=== PATIENT | female | born 1945 | race Caucasian/White ===

== ENCOUNTER → 2023-10-05 14:05 | Outpatient (REF) | payer MEDICARE, SELFPAY ==
[2023-10-05 15:37] LABS: % Eosinophils 0.8 % (0-6); % Immature Granulocytes 0.5 % (0-0.5); % Lymphocytes 27.4 % (20.5-51.1); % Monocytes 8.5 % (1.7-9.3); % Neutrophils 61.8 % (42.2-75.2); Absolute Basophils 0.1 10^3/uL (0-0.2); Absolute Eosinophils 0.1 10^3/uL (0-0.7); Absolute Lymphocytes 1.7 10^3/uL (1.2-3.4); Absolute Monocytes 0.5 10^3/uL (0.1-0.6); Absolute Neutrophils 3.8 10^3/uL (1.4-6.5); Hematocrit 41.5 % (37.0-47.0); Hemoglobin 14.1 g/dL (12.0-16.0); Mean Corpuscular Hgb 30.3 pg (27.0-31.0); Mean Corpuscular Volume 89.1 fL (81.0-99.0); Mean Platelet Volume 9.7 fL (7.4-10.4); Nucleated Red Blood Cells % 0 %; Platelet Count 216 10^3/uL (130-400); Red Blood Cell Count 4.66 10^6/uL (4.20-5.40); White Blood Cell Count 6.1 10^3/uL (4.8-10.8)
[2023-10-05 17:13] LABS: ALT (SGPT) 14 U/L (0-35); AST (SGOT) 24 U/L (14-36); Alkaline Phosphatase 92 U/L (38-126); Blood Urea Nitrogen 18 mg/dl (7-17); Carbon Dioxide 25 mmol/L (22-30); Chloride 100 mmol/L (98-107); Glucose 100 mg/dl (70-99); Potassium 4.3 mmol/L (3.5-5.1); Sodium 135 mmol/L (135-145); Total Bilirubin 1.3 mg/dl (0.2-1.3); Total Cholesterol 302 mg/dl (50-199); Total Protein 7.7 g/dl (6.3-8.2); Triglyceride 84 mg/dl (10-149); Very Low Density Lipoprotein 16 mg/dl (0-30); eGFR > 60.00
[2023-10-05 17:26] LABS: HDL Cholesterol 148 mg/dl; LDL Cholesterol, Calculated 138 mg/dl
[2023-10-05 17:45] LABS: TSH Reflex To Free T4 0.65 uIU/ml (0.47-4.68)
[2023-10-05 18:04] LABS: Vitamin B12 382 pg/ml (239-931)
[2023-10-06 10:58] LABS: Glycohemoglobin (HgbA1c) 5.3 % (4.0-5.6)
== END ==
LOC: REG 14:05
PROVIDERS: ATTENDING PHYSICIAN Nurse Practitioner Family
DX: E78.00 Pure hypercholesterolemia, unspecified (principal); Z13.29 Encounter for screening for other suspected endocrine disorder; Z13.1 Encounter for screening for diabetes mellitus; Z13.0 Encounter for screening for diseases of the blood and blood-forming organs and certain disorders involving the immune mechanism; E55.9 Vitamin D deficiency, unspecified; E53.8 Deficiency of other specified B group vitamins
CPT/HCPCS: 36415; 80053; 80061; 82607; 82652; 83036; 84443; 85025; 86340

== ENCOUNTER → 2023-11-07 14:46 | Outpatient (REF) | payer MEDICARE, SELFPAY | LOC: RCS 14:46 | PROVIDERS: ATTENDING PHYSICIAN Nurse Practitioner Family | DX: R01.1 Cardiac murmur, unspecified (principal) | CPT/HCPCS: 93306 ==

== ENCOUNTER 2024-03-04 15:50 | Emergency (ER) | payer MEDICARE, SELFPAY ==
[2024-03-04] VITALS (7 sets, daily range): BP systolic 100–141; BP diastolic 50–81
[2024-03-04] MEDS: TYLENOL 1000 MG PO (16:01)
[2024-03-04 16:29] LABS: % Basophils 1.2 % (0-2); % Immature Granulocytes 0.3 % (0-0.5); % Lymphocytes 11.6 % (20.5-51.1); % Monocytes 3.7 % (1.7-9.3); % Neutrophils 83.2 % (42.2-75.2); Absolute Basophils 0.1 10^3/uL (0-0.2); Absolute Lymphocytes 0.8 10^3/uL (1.2-3.4); Absolute Monocytes 0.2 10^3/uL (0.1-0.6); Absolute Neutrophils 5.5 10^3/uL (1.4-6.5); Hematocrit 38.6 % (37.0-47.0); Hemoglobin 12.8 g/dL (12.0-16.0); Mean Corp Hgb Conc. 33.2 g/dL (33.0-37.0); Mean Corpuscular Volume 90.4 fL (81.0-99.0); Mean Platelet Volume 9.9 fL (7.4-10.4); Nucleated Red Blood Cells % 0 %; Platelet Count 190 10^3/uL (130-400); Red Blood Cell Count 4.27 10^6/uL (4.20-5.40); Red Cell Dist. Width 11.4 % (11.5-14.5); White Blood Cell Count 6.6 10^3/uL (4.8-10.8)
[2024-03-04 16:44] LABS: Lactic Acid 1.1 mmol/L (0.7-2.0)
[2024-03-04 16:53] LABS: COVID-19 Antigen Negative (Negative)
[2024-03-04 16:55] LABS: Blood Urea Nitrogen 17 mg/dl (7-17); Calcium 9.3 mg/dl (8.4-10.2); Carbon Dioxide 25 mmol/L (22-30); Chloride 100 mmol/L (98-107); Glucose 132 mg/dl (70-99); Lipase 38 U/L (23-300); Sodium 134 mmol/L (135-145); eGFR > 60.00
--- NOTE | 2024-03-04 18:38 | ED.GENMED ---
History of Present Illness
General
Chief Complaint: Abdominal Symptoms
Source: patient
Exam Limitations: none
Time Seen by Provider: 03/04/24 18:22
History of Present Illness
History of Present Illness:
This is a 78 year old female that comes in with multiple complaints. States that she has a UTi for a couple of days. States that she went to yesterday and she was given Bactrim. States that she took one dose last night and vomited. State that she
was so nauseated. States that she has slept most of the day, is very fatigued and felt disoriented. States that she has fever with chills, felt SOB, headache, lightheaded and she feels that her urine output id down. States that she also has right
sided back pain. Denies any chest pain, abd pain, vomiting, or urinary burning.
Past History
Past History
ED Past Medical History: Cancer (Skin and Colon cancer), HTN, Hypercholesterolemia, Psychiatric (Anxiety, ) and Other (cataracts, )
ED Past Surgical History: Bowel resection (with colostomy), Gynecological (Hyesterctomy) and Other ( Joo cataracts, )
Social History
Tobacco: Non-smoker
Alcohol: None
Drug: None
Personal:
Living: alone
Employment: Employed
Family History
Family History: Other (Noncontributory)
Review of Systems
Review of Systems
All Other Systems: ROS reviewed and negative except as documented in HPI and ROS
Constitutional: Reports fever and chills
EENT: Reports no symptoms
Respiratory: Reports trouble breathing; Denies cough
Cardiac: Reports no symptoms; Denies chest pain
ABD/GI: Reports nausea and vomiting; Denies abdominal pain
: Reports other (Decreased output); Denies dysuria, frequency or urgency
Musculoskeletal: Reports no symptoms
Skin: Reports no symptoms
Neurological: Reports headache and other (Lightheaded)
Psychiatric: Reports no symptoms
Phy Exam
General Physical Exam
General Presentation: well appearing
General age: appears stated age
General Skin: warm and dry
General Habitus: elderly
General Mental: alert
General Hydration: appears well hydrated
ENT Exam
ENT Exam: TM's normal, pharynx normal and neck supple
Eye Exam
Eye Exam: EOMI
Cardiovascular Exam
Cardiovascular Exam: regular rate/rhythm, no edema, no murmur and normal peripheral pulses
Pulmonary Exam
Pulmonary Exam: lungs clear, no respiratory distress, no rales, chest non tender, no crackles, no rhonchi, no wheezing and no cough
Gastrointestinal Exam
Gastrointestinal Exam: normal bowel sounds, non tender, soft, no organomegaly, no pulsatile mass and non distended
Musculoskeletal Exam
Musculoskeletal Exam: full ROM and no edema
Skin Exam
Skin Exam: normal color, warm/dry, no rash and no petechia
Psychiatric Exam
Psychiatric Exam: normal mood/affect
Sepsis
Sepsis Screening
Sepsis Assessment: Sepsis Ruled Out
Sepsis Screen
Sepsis Screen: Sepsis Ruled Out
Date: 03/05/24
Time: 04:42
Course
Orders/Labs/Results
Orders:
Orders
03/04/24 15:59
Acetaminophen [Tylenol] 1,000 mg .ROUTE .[facility]-MED ONE
03/04/24 16:00
Acetaminophen [Tylenol] 1,000 mg PO NOW STA
03/04/24 16:10
Basic Metabolic Panel Urgent
COVID-19 Antigen Urgent
Source: Nasal Swab
Complete Blood Count/With Diff Urgent
Lactic Acid Urgent
Lipase Urgent
Influenza A+B Rapid Molecular Urgent
MOJGAN Source: Nasal Swab
Specimen Description:
03/04/24 18:35
0.9% Sodium Chloride 1000 ml [Nss] 1,000 ml IV BOLUS
03/04/24 20:26
Urinalysis Reflex To Culture Urgent
Date Specimen was Collected: 03/04/24
Time Specimen was Collected: 20:08
Urine Microscopic Reflex Cult Urgent
Urine Culture Urgent
MOJGAN Source: U
Specimen Description:
Date Specimen was Collected: 03/04/24
Time Specimen was Collected: 20:08
03/04/24 21:27
CT Abd/pel Without Iv Or Oral Urgent
Comment:
Reason For Exam: right sided pain, Blood in urine
03/04/24 21:58
CefTRIAXone [Rocephin] 1,000 mg IV NOW STA
03/04/24 22:14
Sterile Water [Sterile Water For Injection] 10 ml .ROUTE .[facility]-MED ONE
03/04/24 22:52
Ondansetron Injectable [Zofran] 4 mg IV NOW STA
Abnormal Lab Results
03/04/24 03/04/24
16:10 20:26
RDW 11.4 L %
(11.5-14.5)
Absolute Lymphs (auto) 0.8 L 10^3/uL
(1.2-3.4)
Neutrophils % 83.2 H %
(42.2-75.2)
Lymphocytes % 11.6 L %
(20.5-51.1)
Sodium 134 L mmol/L
(135-145)
Glucose 132 H mg/dl
(70-99)
Urine Ketones 1+ A
(Negative)
Ur Occult Blood Reflex 3+ A
(Negative)
Leukocyte Esterase Rfl 1+ A
(Negative)
Urine RBC 7-10 A /HPF
(0-2)
Urine WBC (Reflex) 50-60 A /HPF
(0-5)
Urine Bacteria (Reflex) Few A
(Negative)
03/04/24 16:10
03/04/24 16:10
Hyperglycemia. lactic acid normal at 1.1, COVID and Influenza negative .
Vital Signs
Initial and Last Documented VS:
Initial Vital Signs
Temp Pulse Resp BP Pulse Ox
100.5 F H 97 19 100/81 99
03/04/24 15:52 03/04/24 15:52 03/04/24 15:52 03/04/24 15:52 03/04/24 15:52
Last Documented Vital Signs
Temp Pulse Resp BP Pulse Ox
100.5 F H 92 20 141/68 98
03/04/24 15:52 03/04/24 23:00 03/04/24 23:00 03/04/24 23:00 03/04/24 21:45
MDM/Problems Addressed
Differential Diagnosis Includes:
Pyelonephritis, UTI, Renal calculus
MDM/Problems Addressed:
This is a 78 year old female that comes in with multiple complaints. states that she went to yesterday and was told that she has a UTI. patient was given Bactirm and states that she vomited. States that today she has been fatigued, disoriented,
had a fever with chills, right sided back pain, Nauseated, lightheaded with a headache.
Will check blood, urine, give IV fluids and antibiotic as needed. Will get CT without contrast if urine positive for blood and no infection.
back into see patient. Explained that the bottom half of her urine is not back but there is blood in the urine. Due to patient right sided back pain will get CT scan to r/o a renal calculus
Back into see patient. Explained that her CT scan is negative for any renal calculus. Patient does have a UTI. Patient has been given Rocephen here and will be started on Cefdinir. Patient to increase her water intake to 8-8oz glasses daily. Follow
up with the family doctor. Return with any concerns.
Chronic conditions affecting care:
NA
Acute Exacerbation and/or Progression of Chronic Illness:
NA
*Radiology
Radiology exam reviewed: radiology read reviewed (CT -No significant acute abnormality identified in the abdomen or pelvis, within the limits of unenhanced CT, as described above. )
*Pulse Oximetry
Patient hypoxic: no
*EKG
Interpreted by ED Provider?: NA
Rate: EKG- N/A
*Pattern Wheel Maker Interpretation
Rate: Pattern Wheel Maker- N/A
*Critical Care Note
Total Time (30-74mins, 75-104mins- exclusive of procedures): Not Applicable
ED Attending Note
-
Portions of this chart may have been created with voice recognition software.� Occasional wrong word or��sound alike� substitutions may have occurred due to the inherent limitations of voice recognition software.
Discharge Plan
Departure
Patient Disposition: Home (Routine Discharge)
Date of Disposition: 03/04/24
Time of Disposition: 22:45
Patient with high blood pressure during this ER visit?: Yes
Condition: Good
Covid-19: Not Applicable
Discharge Problem:
Urinary tract infection
Instructions: Urinary Tract Infection, Adult ED, BLOOD PRESSURE
Prescriptions:
New
cefdinir 300 mg capsule
300 mg PO BID Qty: 14 0RF
No Action
lisinopril 10 MG tablet
10 mg PO DAILY
calcium 600 mg Capsule
600 mg PO DAILY
buspirone 5 mg Tablet
5 mg PO BID
Referrals:
Nayla Shafer MD [Family Provider] - Follow up in 5-7 days
Activity Restrictions/Additional Instructions:
As discussed, your blood work is normal. You are negative for COVID and Influenza. Your CT is negative for any renal calculus. You do have a Urinary tract infection. You have been given IV antibiotic here and a prescription has been sent to your
pharmacy for the next 7 days. Please increase your water intake to 8-8oz glasses daily. Follow up with the family doctor for recheck. Please use Tylenol 1000mg every 6 hours as needed for any fever. IF YOU HAVE FEVER THAT IS NOT CONTROLLED,
INCREASED BACK PAIN, OR YOU HAVE ANY OTHER CONCERNS PLEASE RETURN TO THE EMERGENCY ROOM.
Interventions
Interventions:
*Risk Screen - Suicide Last Done: 03/04/24 16:00
*General Assessment Last Done: 03/04/24 18:49
*Neglect/Abuse Screening Last Done: 03/04/24 16:00
*ED COVID-19 Vaccine History Last Done: 03/04/24 18:49
*Nursing Disposition Last Done: 03/04/24 23:09
GC-[facility]-Gwgnfeecsc Assessment Last Done: 03/04/24 18:49
Discharge Date and Time
Discharge Date/Time: 03/04/24 23:09
Print Language: [place]OOK ISLAND[place]
[2024-03-04] MEDS: NSS 1000 IV (18:51)
[2024-03-04 20:47] LABS: Urine Albumin Negative (Neg - Trace); Urine Bilirubin Negative (Negative); Urine Character Slightly Cloudy (Clear); Urine Color Yellow; Urine Glucose Negative (Negative); Urine Ketone 1+ (Negative); Urine Leukocyte 1+ (Negative); Urine Nitrite Negative (Negative); Urine Occult Blood 3+ (Negative); Urine Urobilinogen Negative (Neg - 1+)
[2024-03-04 21:45] LABS: Urine Mucus Many; Urine Squamous Cell 0-2 /LPF (Few)
[2024-03-04 21:46] LABS: Urine Bacteria Few (Negative); Urine White Cell 50-60 /HPF (0-5)
[2024-03-04] MEDS: ROCEPHIN 1000 MG IV (22:16)
[2024-03-04] MEDS: ZOFRAN 4 MG IV (22:55)
== END 2024-03-04 23:09 | disposition home or self-care (01) ==
LOC: EMR 15:50
PROVIDERS: Clinical Nurse Specialist Family Health; Student in an Organized Health Care Education/Training Program; EMERGENCY PHYSICIAN Emergency Medicine; FAMILY PHYSICIAN Family Medicine
DX: N39.0 Urinary tract infection, site not specified (principal); I10 Essential (primary) hypertension; Z11.52 Encounter for screening for COVID-19
CPT/HCPCS: 99284; 96374; 96375; 96361; 74176; 80048; 81003; 81015; 83605; 83690; 85025; 87086; 87502; 87811

== ENCOUNTER → 2024-10-07 11:04 | Outpatient (REF) | payer MEDICARE, SELFPAY ==
[2024-10-07 12:09] LABS: Hematocrit 40.9 % (37.0-47.0); Hemoglobin 13.5 g/dL (12.0-16.0); Mean Corp Hgb Conc. 33.0 g/dL (33.0-37.0); Mean Corpuscular Volume 92.1 fL (81.0-99.0); Nucleated Red Blood Cells % 0 %; Platelet Count 220 10^3/uL (130-400); Red Cell Dist. Width 12.1 % (11.5-14.5)
[2024-10-07 12:23] LABS: Urine Character Clear (Clear)
[2024-10-07 12:36] LABS: Urine Squamous Cell 0-2 /LPF (Few)
[2024-10-07 12:37] LABS: Urine White Cell 0-2 /HPF (0-5)
[2024-10-07 13:32] LABS: Vitamin D, 25-OH*** 33.2 ng/mL (30-80)
[2024-10-07 13:38] LABS: ALT (SGPT) 14 U/L (0-35); AST (SGOT) 19 U/L (14-36); Albumin 4.9 g/dl (3.5-5.0); Alkaline Phosphatase 90 U/L (38-126); Blood Urea Nitrogen 12 mg/dl (7-17); Calcium 9.7 mg/dl (8.4-10.2); Carbon Dioxide 26 mmol/L (22-30); Chloride 101 mmol/L (98-107); Glucose 104 mg/dl (70-99); Potassium 4.3 mmol/L (3.5-5.1); Sodium 136 mmol/L (135-145); Total Protein 7.6 g/dl (6.3-8.2); eGFR > 60.00
[2024-10-07 13:56] LABS: HDL Cholesterol 114 mg/dl; LDL Cholesterol, Calculated 133 mg/dl; Very Low Density Lipoprotein 11 mg/dl (0-30)
[2024-10-07 14:05] LABS: Vitamin B12 416 pg/ml (239-931)
[2024-10-07 14:26] LABS: Glycohemoglobin (HgbA1c) 5.2 % (4.0-5.6)
== END ==
LOC: REG 11:04
PROVIDERS: ATTENDING PHYSICIAN Family Medicine
DX: Z13.89 Encounter for screening for other disorder (principal); R73.01 Impaired fasting glucose; E53.8 Deficiency of other specified B group vitamins; E78.5 Hyperlipidemia, unspecified; E55.9 Vitamin D deficiency, unspecified
CPT/HCPCS: 36415; 80053; 80061; 81003; 81015; 82306; 82607; 83036; 84443; 85025

== ENCOUNTER 2025-01-14 11:59 | Inpatient (IN) | payer MEDICARE, SELFPAY ==
[2024-12-29 11:40] LABS: Hematocrit 40.9 % (37.0-47.0); Hemoglobin 13.4 g/dL (12.0-16.0); Mean Corp Hgb Conc. 32.8 g/dL (33.0-37.0); Mean Corpuscular Volume 92.3 fL (81.0-99.0); Platelet Count 200 10^3/uL (130-400); Red Cell Dist. Width 12.3 % (11.5-14.5)
[2024-12-29 11:56] LABS: Blood Urea Nitrogen 21 mg/dl (7-17); Calcium 9.8 mg/dl (8.4-10.2); Carbon Dioxide 30 mmol/L (22-30); Chloride 105 mmol/L (98-107); Glucose 99 mg/dl (70-99); Potassium 4.7 mmol/L (3.5-5.1); Sodium 140 mmol/L (135-145); eGFR > 60.00
[2024-12-29 14:06] VITALS: BMI 23.7
[2025-01-14] VITALS (15 sets, daily range): BP systolic 97–167; BP diastolic 46–88; BMI 23.7
[2025-01-14] MEDS: NORMOSOL-R/PLASMALYTE-A 1000 IV ×2 (12:12→18:20)
[2025-01-14] MEDS: TYLENOL 1000 MG PO (12:12)
--- NOTE | 2025-01-14 15:10 | W.IMMPOSTOP ---
Surgical Immed Post Op Note
-
Primary Surgeon: Jayna
Assisting Surgeon: None
Pre-op Diagnosis: Parastomal hernia
Post-op Diagnosis: Parastomal hernia
Procedure Performed: Open parastomal hernia repair with mesh
Anesthesia Type: General
Specimen / Cultures: Portion of colon
Estimated Blood Loss: 3 cc
Complications: None
Operative Findings:
1. Parastomal hernia with redundancy within soft tissue space, resection of 15 cm back to appropriate length
2. Fascial opening secured with single 0 PDS
3. 7 x [address] onlay mesh reinforcement secured circumferentially with 2-0 PDS
4. Roseanna ostomy with 3-0 Vicryl
[2025-01-14] MEDS: TYLENOL PO (18:21)
[2025-01-14] MEDS: TYLENOL 650 MG PO ×2 (18:21→23:12)
--- NOTE | 2025-01-14 18:53 | PTCARENOTE ---
Pt arrived from PACU in bed at aprox 1810. Pt vitals on admission WNL. Pt with new left upper MONI drain-site secured with split gauze. No drainage noted at site and MONI is emtpy. Pt with left lower abd colostomy (not new)with new bag from surgery.
Small amount of bloody drainage noted in bag. No stool. Pt with minimal pain at this time. Pt instructed to ring for assistance to get OOB to use bathroom. Clear dinner ordered.
[2025-01-14] MEDS: ZOSYN 50 IV (22:54)
[2025-01-15 03:08] VITALS: BP 117/67
[2025-01-15] MEDS: ZOSYN 50 IV ×4 (04:17→22:20)
[2025-01-15] MEDS: TYLENOL PO (04:33)
[2025-01-15] MEDS: NORMOSOL-R/PLASMALYTE-A IV (04:35)
[2025-01-15] MEDS: NORMOSOL-R/PLASMALYTE-A 1000 IV ×2 (05:37→16:40)
--- NOTE | 2025-01-15 07:15 | W.PN.GS2 ---
Today's Communication / Plan
-
-- Clears
Assessment / Plan
-
Patient is a 79 yo F POD#1 s/p open parastomal hernia repair with mesh
AVSS
Labs pending
Recovering well. No postoperative concerns. Continue on clears today until more consistent ROBF.
-- Clears
-- OK to HLIV if tolerating clears
-- Pain control: Tylenol and Toradol
-- Home meds
-- DVT: Lovenox
Subjective Data
-
Date of Service: January 15, 2025
No complaints. Mild soreness around ostomy. No nausea or vomiting. Small amounts of flatus from ostomy, no stool. Afebrile.
Objective Data
-
Intake and Output
01/14/25 01/15/25 01/16/25
06:59 06:59 06:59
Intake Total 1200 / 1200
Output Total 0 / 0
Balance 1200 / 1200
Intake:
IV fluids (Total) 1100 / 1100
IV piggybacks 100 / 100
Output:
Drain Output (Total) 0 / 0
Left Abdomen 0 / 0
Vital Signs
Temp Pulse Resp BP Pulse Ox
97.6 F 80 17 117/67 98
01/15/25 03:08 01/15/25 03:08 01/15/25 03:08 01/15/25 03:08 01/15/25 03:08
Lab Results
12/29/24 10:27
12/29/24 10:27
Calcium 9.8 mg/dl (8.4-10.2) 12/29/24 10:27
Physical Exam
-
Gen: NAD
Abd: soft, mild tenderness at ostomy, ND, non-peritoneal, ostomy PPV - small flatus, no stool, MONI minimal old blood
Patient has a sr catheter: No
Patient has a central line: No
[2025-01-15 07:35] VITALS: BP 136/72
[2025-01-15] MEDS: ZESTRIL 20 MG PO (08:19)
[2025-01-15] MEDS: TYLENOL 650 MG PO ×4 (08:19→19:58)
[2025-01-15] MEDS: LEXAPRO 5 MG PO (08:19)
[2025-01-15 09:28] LABS: Hematocrit 35.6 % (37.0-47.0); Hemoglobin 11.7 g/dL (12.0-16.0); Mean Corp Hgb Conc. 32.9 g/dL (33.0-37.0); Mean Corpuscular Volume 92.5 fL (81.0-99.0); Platelet Count 146 10^3/uL (130-400); Red Cell Dist. Width 11.9 % (11.5-14.5)
[2025-01-15 10:10] LABS: Blood Urea Nitrogen 10 mg/dl (7-17); Calcium 8.8 mg/dl (8.4-10.2); Carbon Dioxide 30 mmol/L (22-30); Chloride 105 mmol/L (98-107); Estimated Creatinine Clearance 70 ml/min; Glucose 95 mg/dl (70-99); Potassium 4.0 mmol/L (3.5-5.1); Sodium 139 mmol/L (135-145); eGFR > 60.00
--- NOTE | 2025-01-15 10:55 | WOUNDNOTE ---
WOC RN note: Patient's stoma pink. Small SS drainage in pouch. Appliance intact. Patient is independent in ostomy care. Ostomy supplies given (Teresa wafer # [id number], Shmuel seals and R[place]olt pouch #[id number]). Call if needed.
[2025-01-15 11:05] VITALS: BP 94/64
[2025-01-15 13:38] VITALS: BP 132/66
[2025-01-15 15:10] VITALS: BP 109/56
--- NOTE | 2025-01-15 15:30 | CM ---
Met with patient at the bedside
Pharmacy verified: [facility] @ [address] [facility]
Patient reported that she is in currently in the process of selling her multilevel home [address] in [place] and moving to a new apartment in [place].
Patient reported she was going to stay with her sister who lives in the [facility] post discharge; but due to sister's illness, she is going to stay at her new one floor apartment located @ [address], [address], [address],
[place]
The new apartment has elevator access (55+ community); bath has a walk-in shower.
PLOF: independent with ambulation, stairs and ADLs; has a RW and Cane if she needs one
Home Health services utilized in 2009; no SNF utilization
[facility] will transport her home
Home Health/VN offered and she is agreeable; agency options identified; [facility] is her preference; referral sent and acknowledged via [place] [facility]
Plan: Discharge to home w/ Home Health/VN when medically stable
--- NOTE | 2025-01-15 16:11 | VNURNOTE ---
Home Health Liaison met with patient and niece at bedside to discuss [facility] nurse/therapy, visits, schedule and homebound status. Patient is agreeable and understands that visits at home will be 2-3 x per week to assess and teach medical and drain
management. Patient has had ostomy APPLE PICKER. Patient is aware that [facility] will contact them for start of care within a few days after discharge from . Provided contact number for [facility].
[facility] referral completed in [facility].
[2025-01-15] MEDS: LOVENOX 40 MG SC (17:37)
[2025-01-15 23:16] VITALS: BP 127/63
[2025-01-16] MEDS: TYLENOL PO ×2 (00:54→03:59)
[2025-01-16] MEDS: ZOSYN 50 IV ×2 (03:56→08:17)
[2025-01-16 08:00] VITALS: BP 131/75
[2025-01-16] MEDS: TYLENOL 650 MG PO (08:16)
[2025-01-16] MEDS: ZESTRIL 20 MG PO (08:17)
[2025-01-16] MEDS: LEXAPRO 5 MG PO (08:17)
--- NOTE | 2025-01-16 09:57 | W.PN.GS2 ---
Today's Communication / Plan
-
Dispo planning
Assessment / Plan
-
Patient is a 79 yo F POD#2 s/p open parastomal hernia repair with mesh. Doing well, expected postoperative course.
regular diet
Dispo planning with drain, patient to follow-up with Dr. Dorantes early next week for possible removal.
Time Spent
Total Time Spent with Patient (in minutes): 20
Subjective Data
-
Date of Service: January 16, 2025
Interval Events:
No acute events overnight. Slept well. Pain Controlled. Denies Nausea/Vomiting, +bowel function, ostomy filled with gas. Tolerating diet.
Objective Data
-
Intake and Output
01/15/25 01/16/25 01/17/25
06:59 06:59 06:59
Intake Total 1200 / 1200 2120 / 2120
Output Total 0 / 0 50 / 50
Balance 1200 / 1200 2069 / 0
Intake:
Oral fluids 820 / 820
IV fluids (Total) 1100 / 1100 1200 / 1200
IV piggybacks 100 / 100 100 / 100
Output:
Drain Output (Total) 0 / 0 50 / 50
Left Abdomen 0 / 0 50 / 50
Other:
Number of approximated MODERATE 2
amounts of urine
Vital Signs
Temp Pulse Resp BP Pulse Ox
99.5 F 84 16 131/75 95
01/16/25 08:00 01/16/25 08:00 01/16/25 08:00 01/16/25 08:00 01/16/25 08:00
Lab Results
01/15/25 08:38
01/15/25 08:38
Calcium 8.8 mg/dl (8.4-10.2) 01/15/25 08:38
Physical Exam
-
GENERAL/NEURO: Awake, Alert, no distress
CHEST: Unlabored breathing on RA
ABDOMEN: Soft, Non-Tender, Non-Distended, ostomy is pink patent and productive. MONI with 50 cc of serosanguineous output
Patient has a sr catheter: No
Patient has a central line: No
--- NOTE | 2025-01-16 11:23 | W.DS.TRANS ---
Addendum entered and electronically signed by TAMIKO Tobias 01/16/25 11:29:
dictated #[id number]
Original Note:
DC Summary - Special Education Paraeducator
-
Discharge Instructions:
Sleep Apnea Risk Intermediate
Discharge Diagnosis/Procedures Parastomal hernia repair with mesh
Diet Regular
Activity No strenuous activity
Additional Activity No heavy lifting (>20 lbs) or strenuous
activities for 4-6 weeks
Driving Restrictions No driving if too sore or taking narcotics
Bathing Restrictions OK to Shower
Other Services VN
Wound Care Routine ostomy care as previously performed.
Empty MONI daily and record outputs.
Instructions: How to care for a closed suction drain
Stand-Alone Forms:
Changes to Home Medications: No
Discharge Medications:
DC Medications w/original date entered in [facility]
lisinopril 10 mg tablet 20 mg PO DAILY 10/19/18
calcium 600 mg capsule 600 mg PO DAILY 01/09/22
acetaminophen 325 mg tablet (Tylenol) 325 mg PO ONCE PRN pain 01/07/25
aspirin 81 mg tablet 81 mg PO DAILY 01/07/25
escitalopram oxalate 5 mg tablet 5 mg PO DAILY PRN anxiety 01/07/25
ibuprofen 100 mg chewable tablet 200 mg PO ONCE PRN pain 01/07/25
acetaminophen 325 mg tablet 650 mg (2 x 325 mg) PO Q4HPRN PRN mild pain #1 tab 01/16/25
tramadol 50 mg tablet 25 - 50 mg (0.5 - 1 x 50 mg) PO Q6HPRN PRN severe pain/breakthrough pain #10 tabs 01/16/25
Home Medication Changes
Pending Results: No
[2025-01-16 12:00] VITALS: BP 144/52
--- NOTE | 2025-01-16 12:16 | CM ---
CM following re: discharge planning.
Reviewed pt's chart, met with pt and pt's niece gabriel at bedside.
Discharge order noted. Pt is aware, expressed her agreement. IMM reviewed, placed on chart, pt has a copy.
Pt is aware that [facility] will provide after care [facility] services.
Please fax discharge instructions to [facility] at [phone]
D/C plan: home with [facility] and family support. niece to transport.
== END 2025-01-16 12:15 | disposition home health service (06) | DRG 355 ==
LOC: 2 SOUTH 11:59
PROVIDERS: ADMITTING PHYSICIAN Surgery; FAMILY PHYSICIAN Family Medicine
PROC: 0WUF0JZ Supplement Abdominal Wall with Synthetic Substitute, Open Approach (ICD-10-PCS; 2025-01-14)
DX: K43.5 Parastomal hernia without obstruction or gangrene (principal); Z93.3 Colostomy status; Z85.048 Personal history of other malignant neoplasm of rectum, rectosigmoid junction, and anus
CPT/HCPCS: 36415; 80048; 85027; 88307; 93005; C1781